=== PATIENT | male | born 1980 | race Caucasian/White ===

== ENCOUNTER 2022-12-05 19:54 | Emergency (ER) | payer BC ==
[2022-12-05] MEDS ORDERED: Ketorolac Tromethamine 30 MG/ML VIAL ONE (22:55)
[2022-12-05 23:22] LABS: Bilirubin Neg (Negative); Blood, Urine Negative (Negative); Clarity Clear (Clear); Glucose, Urine (Dipstick) Normal (Negative); Ketone, Urine 150 mg/dL (Negative); Leukocyte Negative (Negative); Nitrite Negative (Negative); Protein, Urine (Dipstick) 30 mg/dl (Neg-Trace); Specific Gravity, Urine 1.025 (1.005-1.030)
[2022-12-05 23:29] LABS: Bacteria/HPF None Seen HPF (None Seen); Mucous/LPF 2+ LPF (<2+); RBC/HPF 0-3 HPF (0-3); Squamous Epithelial 0-3 HPF (0-3); WBC/HPF 0-3 HPF (0-3)
== END 2022-12-06 00:03 | disposition home or self-care (01) ==
LOC: CSHERS 19:54
DX: M54.50 Low back pain, unspecified (principal)
CPT/HCPCS: 72100; 81003; 81015; 96372; J1885